=== PATIENT | male | born 1990 | race Caucasian/White ===

== ENCOUNTER 2017-04-08 12:32 | Emergency (ER) | payer MEDICAID ==
[2017-04-08] MEDS ORDERED: MORPHINE SULFATE 10 MG/ML INJ IV ONE (12:51)
--- NOTE | 2017-04-08 13:12 | ER Document Report ---
ED General - General Chief Complaint: Shoulder Injury Stated Complaint: SHOULDER INJURY Time Seen by Provider: 04/08/17 12:48 Mode of Arrival: Ambulatory Notes: 26-year-old male presents with complaints of right shoulder pain after falling off his skateboard. Patient notes he has had 2 previous surgeries on the right shoulder has had dislocations. Patient unable to move his arm due to pain TRAVEL OUTSIDE OF THE [place] IN LAST 30 DAYS: No - HPI Onset: Just prior to arrival Onset/Duration: Sudden Quality of pain: Achy Severity: Mild Pain Level: 2 Associated symptoms: Body/muscle aches Exacerbated by: Movement Relieved by: Denies Similar symptoms previously: Yes Recently seen / treated by doctor: Yes - Related Data Allergies/Adverse Reactions: No Known Allergies Allergy (Unverified 04/08/17 12:41) Past Medical History - Social History Smoking Status: Current Every Day Smoker Cigarette use (# per day): Yes Chew tobacco use (# tins/day): No Smoking Education Provided: No Family History: Reviewed & Not Pertinent Renal/ Medical History: Denies: Hx Peritoneal Dialysis Review of Systems - Review of Systems Notes: PHYSICAL EXAMINATION: GENERAL: Well-appearing, well-nourished and in no acute distress. HEAD: Atraumatic, normocephalic. EYES: Pupils equal round and reactive to light, extraocular movements intact, sclera anicteric, conjunctiva are normal. ENT: Nares patent, oropharynx clear without exudates. Moist mucous membranes. NECK: Normal range of motion, supple without lymphadenopathy LUNGS: Breath sounds clear to auscultation bilaterally and equal. No wheezes rales or rhonchi. HEART: Regular rate and rhythm without murmurs ABDOMEN: Soft, nontender, nondistended abdomen. No guarding, no rebound. No masses appreciated. Musculoskeletal: obvious deformity right shoulder NEUROLOGICAL: Cranial nerves grossly intact. Normal speech, normal gait. Normal sensory, motor exams PSYCH: Normal mood, normal affect. SKIN: abrasion right shoulder Physical Exam - Vital signs Vitals: Resp BP Pulse Ox 22 H 131/69 H 95 04/08/17 13:32 04/08/17 13:32 04/08/17 13:32 Course - Re-evaluation Re-evalutation: 04/08/17 14:29 Repeat x-ray notes dislocation is still present, will attempt reduction and conscious sedation again 04/08/17 15:30 Secondary attempt resolved patient's dislocation Patient to be given orthopedic follow-up otherwise stable pulses intact sensations intact After performing a Medical Screening Examination, I estimate there is LOW risk for INTRACRANIAL HEMORRHAGE, UNSTABLE SPINE FRACTURE, CENTRAL CORD SYNDROME, CAUDA EQUINA, THORACIC AORTIC DISSECTION, PNEUMOTHORAX, PERFORATED BOWEL, RUPTURED ABDOMINAL AORTIC ANEURYSM, ACUTE TENDON RUPTURE, COMPARTMENT SYNDROME, or OPEN FRACTURE, thus I consider the discharge disposition reasonable. Also, there is no evidence or peritonitis, sepsis, or toxicity. I have reevaluated this patient multiple times and no significant life threatening changes are noted. The patient and I have discussed the diagnosis and risks, and we agree with discharging home to follow-up with their primary doctor with the understanding that symptoms and presentations can change. We also discussed returning to the Emergency Department immediately if new or worsening symptoms occur. We have discussed the symptoms which are most concerning (e.g., bloody stool, fever, changing or worsening pain, vomiting) that necessitate immediate return. - Vital Signs Vital signs: Temp Pulse Resp BP Pulse Ox 78 12 115/77 96 04/08/17 14:48 04/08/17 15:21 04/08/17 15:21 04/08/17 15:21 - Diagnostic Test Radiology reviewed: Image reviewed, Reports reviewed - Dislocated right shoulder Procedures - Conscious Sedation Conscious sedation Time started: 13:35 Time completed: 14:00 Consent obtained: Yes Indication: right shoulder dislocation Prior complications: Procedural sedation Pt with a mild systemic disease.: P2. - ASA Classification. Airway Evaluation: Normal anatomy Mallampati Classification: Class 2 Used during procedure: Suction available, IV access obtained, Pulse ox on pt., engine monitor on pt. Medications administered: Diprivan Reversal agents: None I personally performed/intraservice time: Sedation, Procedure, 30 min or less Complications: No Notes: second attempt of conscious sedation performed from [id number] Reduction attempt successful at 1437 - Immobilization Right Shoulder Time completed: 14:00 Pre-Proc Neuro Vasc Exam: Normal Immobilizer type: Shoulder immobilizer Performed by: PCT Post-Proc Neuro Vasc Exam: Normal Alignment checked and good: Yes - Joint Reduction/Fracture Care Right Shoulder Time completed: 13:50 Consent obtained: Yes Conscious sedation: Yes Pre-procedure NV exam: Yes Fracture: Other Post-procedure NV exam: Yes Post-reduction x-ray: Joint reduced Reduction attempts: 1 Complications: No Discharge - Discharge Clinical Impression: Recurrent dislocation, right shoulder Condition: Stable Disposition: HOME, SELF-CARE Instructions: Shoulder Dislocation ([facility]), Sling as Treatment ([facility]) Prescriptions: Oxycodone HCl/Acetaminophen [Percocet 5-325 mg Tablet] 1 - 2 tab PO Q4H PRN #15 tablet PRN Reason: Referrals: MARTÍN SCHMITT DO [ACTIVE STAFF] - Follow up tomorrow
[2017-04-08] MEDS ORDERED: PROPOFOL INJ 200 MG/20 ML VIAL IV ONE ×2 (13:13→14:28)
[2017-04-08 15:54] VITALS: BP 121/79
== END 2017-04-08 15:54 | disposition home or self-care (01) ==
LOC: ER 12:32
PROC: 0RSJXZZ Reposition Right Shoulder Joint, External Approach (ICD-10-PCS; principal; 2017-04-08)
DX: M24.411 Recurrent dislocation, right shoulder (principal); V00.131A Fall from skateboard, initial encounter; Y93.51 Activity, roller skating (inline) and skateboarding; F17.210 Nicotine dependence, cigarettes, uncomplicated; Z98.890 Other specified postprocedural states
CPT/HCPCS: 99283; 99152; 73030; 23650; L3650; J2270; J2704

== ENCOUNTER 2017-04-17 12:05 | Emergency (ER) | payer MEDICAID ==
--- NOTE | 2017-04-17 13:22 | RADIOLOGY REPORT (SQ) ---
EXAM DESCRIPTION: SHOULDER RIGHT 2 OR MORE VIEWS COMPLETED DATE/TIME: 04/17/2017 1:00 pm REASON FOR STUDY: shoulder surg X2/?dislocated shoulder COMPARISON: 04/08/2017 NUMBER OF VIEWS: Three views. TECHNIQUE: Frontal and lateral images acquired of the right shoulder. LIMITATIONS: None. FINDINGS: MINERALIZATION: Normal. BONES: There is an anterior dislocation of the shoulder. No fracture is appreciated. JOINTS: Anterior dislocation. VISUALIZED LUNGS AND RIBS: No pneumothorax. No rib fracture. SOFT TISSUES: No radiopaque foreign body. OTHER: No other significant finding. IMPRESSION: Anterior dislocation of the right shoulder. TECHNICAL DOCUMENTATION: JOB ID: [id number] [employer]- All Rights Reserved
[2017-04-17] MEDS ORDERED: HYDROMORPHONE HCL INJ/PF 2 MG/ML AMPULE IV ONE ×3 (13:27→19:16)
--- NOTE | 2017-04-17 13:30 | ER Document Report ---
ED Medical Screen (RME) - General Chief Complaint: Shoulder Injury Stated Complaint: RIGHT SHOULDER PAIN Time Seen by Provider: 04/17/17 13:26 Mode of Arrival: Ambulatory Information source: Patient Notes: Patient was holding a cabinet that slid and fell causing him to dislocate his right shoulder. Patient does have a previous history of shoulder dislocation and orthopedic shoulder surgery in the past. Patient has obvious deformity of right shoulder. TRAVEL OUTSIDE OF THE [place] IN LAST 30 DAYS: No - Related Data Allergies/Adverse Reactions: No Known Allergies Allergy (Unverified 04/08/17 12:41) Past Medical History Renal/ Medical History: Denies: Hx Peritoneal Dialysis Past Surgical History: Reports: Hx Orthopedic Surgery, Hx Tonsillectomy Physical Exam - Vital signs Vitals: Temp Pulse Resp BP Pulse Ox 98.5 F 102 H 22 H 125/82 99 04/17/17 12:34 04/17/17 12:34 04/17/17 12:34 04/17/17 12:34 04/17/17 12:34 - Cardiovascular Pulses: Normal: Radial - Extremities General upper extremity: Tender Shoulder: Tender, Deformity, Dislocation Course - Re-evaluation Re-evalutation: 04/17/17 13:[address] Manzano who recommends getting IV Dilaudid for pain medication. Charge nurse advised the patient's status, patient awaiting available bed. - Vital Signs Vital signs: Temp Pulse Resp BP Pulse Ox 98.5 F 102 H 22 H 125/82 99 04/17/17 12:34 04/17/17 12:34 04/17/17 12:34 04/17/17 12:34 04/17/17 12:34
[2017-04-17] MEDS ORDERED: LORAZEPAM INJ 2 MG/1 ML VIAL IV ONE (14:46)
[2017-04-17] MEDS ORDERED: LIDOCAINE 1% INJ (10 MG/ML) 10 ML MDV INJ ONE (14:47)
--- NOTE | 2017-04-17 14:48 | ER Document Report ---
ED Extremity Problem, Upper - General Mode of Arrival: Ambulatory Information source: Patient TRAVEL OUTSIDE OF THE [place] IN LAST 30 DAYS: No <GERARDO DONG - Last Filed: 04/17/17 15:07> <SIA SAGE - Last Filed: 04/17/17 17:40> <CHAYA OREILLY - Last Filed: 04/17/17 19:16> - General Chief Complaint: Shoulder Injury Stated Complaint: RIGHT SHOULDER PAIN Time Seen by Provider: 04/17/17 13:26 Notes: Patient is a 26-year-old male who presents to the emergency department today with complaints of a right shoulder dislocation. Patient states that he was working on remodeling his uncles house, attempting to screw some screws into the wall when he accidentally dropped the drill. Patient states he attempted to catch it when his shoulder popped out. Patient states he frequently dislocates his right shoulder and has had 2 operations in the past to attempt to prevent further dislocations. Patient has good distal sensation and digit movement distally. (GERARDO DONG) - Related Data Allergies/Adverse Reactions: No Known Allergies Allergy (Unverified 04/08/17 12:41) Past Medical History - General Information source: Patient - Social History Smoking Status: Current Every Day Smoker Cigarette use (# per day): Yes Frequency of alcohol use: None Drug Abuse: None Lives with: Family Family History: Reviewed & Not Pertinent Patient has suicidal ideation: No Patient has homicidal ideation: No Musculoskeltal Medical History: Reports Other - Frequent dislocations of right shoulder Past Surgical History: Reports: Hx Orthopedic Surgery - right shoulder x2, Hx Tonsillectomy <GERARDO DONG - Last Filed: 04/17/17 15:07> Review of Systems - Review of Systems Constitutional: No symptoms reported EENT: No symptoms reported Cardiovascular: No symptoms reported Respiratory: No symptoms reported Gastrointestinal: No symptoms reported Genitourinary: No symptoms reported Male Genitourinary: No symptoms reported Musculoskeletal: See HPI, Joint pain - right shoulder Skin: No symptoms reported Hematologic/Lymphatic: No symptoms reported Neurological/Psychological: No symptoms reported -: Yes All other systems reviewed and negative <GERARDO DONG - Last Filed: 04/17/17 15:07> Physical Exam <GERARDO DONG - Last Filed: 04/17/17 15:07> <SIA SAGE - Last Filed: 04/17/17 17:40> <CHAYA ORELILY - Last Filed: 04/17/17 19:16> - Vital signs Vitals: Temp Pulse Resp BP Pulse Ox 98.5 F 102 H 22 H 125/82 99 04/17/17 12:34 04/17/17 12:34 04/17/17 12:34 04/17/17 12:34 04/17/17 12:34 - Notes Notes: PHYSICAL EXAM GENERAL: Alert, interacts well. Appears uncomfortable. HEAD: Normocephalic, atraumatic. EYES: Pupils equal, round, and reactive to light. Extraocular movements intact. ENT: Oral mucosa moist, tongue midline. NECK: Full range of motion. Supple. Trachea midline. LUNGS: No respiratory distress. HEART: Regular rate and rhythm. No murmurs, gallops, or rubs. ABDOMEN: Non-distended. EXTREMITIES: No edema, radial and dorsalis pedis pulses 2/4 bilaterally. No cyanosis. Obvious deformity of right shoulder, anterior dislocation. Limited range of motion. NEUROLOGICAL: Alert and oriented x3. Normal speech. Biceps and patellar DTRs 2+ bilaterally. PSYCH: Normal affect, normal mood. SKIN: Warm, dry, normal turgor. No rashes or lesions noted. (GERARDO DONG) Course <GERARDO DONG - Last Filed: 04/17/17 15:07> <SIA SAGE - Last Filed: 04/17/17 17:40> - Diagnostic Test Radiology reviewed: Image reviewed, Reports reviewed - Dislocated shoulder <CHAYA OREILLY - Last Filed: 04/17/17 19:16> - Re-evaluation Re-evalutation: 04/17/17 17:40 Attempt to reduce the shoulder several times without conscious sedation, every time it reduced it popped out immediately afterwards. Patient had been given 1 mg of Ativan for anxiety and muscle relaxation. Patient also had 5 mL's of 1% lidocaine injected into the glenohumeral joint under sterile technique using a posterior approach. Despite these attempts I was unable to fully reduce the shoulder. Care of this patient has been signed out to Dr. Mtz for further reduction attempts. (SIA SAGE) 04/17/17 18:33 Shoulder was reduced successfully then popped right back out 5 minutes later 04/17/17 18:35 soraida turcios paged 04/17/17 18:57 cuba Olivo paged 04/17/17 19:09 Dr tomi Mccray states since it comes in and out it can stay out and patient can follow up with either local ortho or his clinic tomorrow , they will not accept for transfer Patient has been made aware of this, denies any concerns agrees with this plan I will give him [facility] care After performing a Medical Screening Examination, I estimate there is LOW risk for INTRACRANIAL HEMORRHAGE, UNSTABLE SPINE FRACTURE, CENTRAL CORD SYNDROME, CAUDA EQUINA, THORACIC AORTIC DISSECTION, PNEUMOTHORAX, PERFORATED BOWEL, RUPTURED ABDOMINAL AORTIC ANEURYSM, ACUTE TENDON RUPTURE, COMPARTMENT SYNDROME, or OPEN FRACTURE, thus I consider the discharge disposition reasonable. Also, there is no evidence or peritonitis, sepsis, or toxicity. I have reevaluated this patient multiple times and no significant life threatening changes are noted. The patient and I have discussed the diagnosis and risks, and we agree with discharging home to follow-up with their primary doctor with the understanding that symptoms and presentations can change. We also discussed returning to the Emergency Department immediately if new or worsening symptoms occur. We have discussed the symptoms which are most concerning (e.g., bloody stool, fever, changing or worsening pain, vomiting) that necessitate immediate return. (CHAYA OREILLY) - Vital Signs Vital signs: Temp Pulse Resp BP Pulse Ox 98.5 F 84 18 137/83 H 99 04/17/17 12:34 04/17/17 18:30 04/17/17 18:30 04/17/17 18:30 04/17/17 18:30 Procedures - Conscious Sedation Conscious sedation Time started: 17:30 Time completed: 17:45 Consent obtained: Yes Indication: shoulder Prior complications: Procedural sedation Normal healthy pt.: P1. - ASA Classification Airway Evaluation: Normal anatomy Mallampati Classification: Class 1 Used during procedure: Suction available, IV access obtained, Pulse ox on pt., russet repairer on pt. Medications administered: Etomidate Reversal agents: None I personally performed/intraservice time: Sedation, Procedure, 30 min or less Complications: No - Immobilization Right Shoulder Time completed: 17:35 Pre-Proc Neuro Vasc Exam: Normal Immobilizer type: Shoulder immobilizer Performed by: PCT Post-Proc Neuro Vasc Exam: Normal Alignment checked and good: Yes - Joint Reduction/Fracture Care Right Shoulder Time completed: 17:35 Consent obtained: Yes Conscious sedation: Yes Pre-procedure NV exam: Yes Fracture: Closed Post-procedure NV exam: Yes Post-reduction x-ray: Joint reduced Reduction attempts: 1 Complications: No <CHAYA OREILLY - Last Filed: 04/17/17 19:16> Discharge <GERARDO DONG - Last Filed: 04/17/17 15:07> <SIA SAGE - Last Filed: 04/17/17 17:40> <CHAYA OREILLY - Last Filed: 04/17/17 19:16> - Discharge Clinical Impression: Shoulder dislocation Qualifiers: Encounter type: subsequent encounter Laterality: right Qualified Code(s): S43.004D - Unspecified dislocation of right shoulder joint, subsequent encounter Shoulder pain Qualifiers: Laterality: right Chronicity: chronic Qualified Code(s): M25.511 - Pain in right shoulder; G89.29 - Other chronic pain Condition: Stable Disposition: HOME, SELF-CARE Instructions: Shoulder Dislocation ([facility]), Sling as Treatment ([facility]) Additional Instructions: you must call [facility] orthopedic [facility], for an appointment with their orthopedic group tomorrow Prescriptions: Oxycodone HCl/Acetaminophen [Percocet 5-325 mg Tablet] 1 - 2 tab PO Q4H PRN #25 tablet PRN Reason: Scribe Documentation - Scribe Written by Jayne:: Jayne Samayoa, 04/17/2017 1538 acting as scribe for DrElba:: Brie <GERARDO DONG - Last Filed: 04/17/17 15:07> - Scribe Written by Jayne:: mer acting as scribe for :: miguelangel <CHAYA OREILLY - Last Filed: 04/17/17 19:16>
[2017-04-17] MEDS ORDERED: POVIDONE-IODINE 10% OINTMENT 28.4 GM TP ONE (14:54)
[2017-04-17] MEDS ORDERED: LIDOCAINE 1% INJ-PF (10 MG/ML) 30 ML SDV INJ ONE (15:15)
[2017-04-17] MEDS ORDERED: PROPOFOL INJ 200 MG/20 ML VIAL IV ONE ×3 (17:29→18:33)
--- NOTE | 2017-04-17 17:58 | RADIOLOGY REPORT (SQ) ---
EXAM DESCRIPTION: SHOULDER RIGHT 1 VIEW COMPLETED DATE/TIME: 04/17/2017 5:39 pm REASON FOR STUDY: POST REDUCTION COMPARISON: 04/17/2017 NUMBER OF VIEWS: One view TECHNIQUE: AP image acquired of the right shoulder. LIMITATIONS: None. FINDINGS: MINERALIZATION: Normal. BONES: No acute fracture or dislocation. No worrisome bone lesions. JOINTS: The dislocation has been reduced. VISUALIZED LUNGS AND RIBS: No pneumothorax. No rib fracture. SOFT TISSUES: No radiopaque foreign body. OTHER: No other significant finding. IMPRESSION: The dislocation has been reduced. TECHNICAL DOCUMENTATION: JOB ID: [id number] [employer]- All Rights Reserved
--- NOTE | 2017-04-17 18:44 | RADIOLOGY REPORT (SQ) ---
EXAM DESCRIPTION: SHOULDER RIGHT 1 VIEW COMPLETED DATE/TIME: 04/17/2017 6:23 pm REASON FOR STUDY: post reduction COMPARISON: 04/17/2017 TECHNIQUE: AP view of the right shoulder LIMITATIONS: None. FINDINGS: There has been interval reduction of the previously described anterior dislocation of the right shoulder. IMPRESSION: Interval reduction of the previously described anterior dislocation of the right annalee dimasElba TECHNICAL DOCUMENTATION: JOB ID: [id number] [employer] All Rights Reserved
--- NOTE | 2017-04-17 18:49 | RADIOLOGY REPORT (SQ) ---
EXAM DESCRIPTION: SHOULDER RIGHT 1 VIEW COMPLETED DATE/TIME: 04/17/2017 6:35 pm REASON FOR STUDY: possible dislocation COMPARISON: 04/17/2017 TECHNIQUE: AP upright view of the right shoulder. LIMITATIONS: None. FINDINGS: The humeral head overlaps and is slightly inferior to the glenoid. The possibility of a d islocation and/or subluxation cannot be excluded on the basis of this 1 film. Clinical correlation i s recommended. If clinical suspicions are high I would recommend a three view series of the right sh oulder. IMPRESSION: Humeral head over labs and a slightly inferior to the glenoid as noted above. The possi bility of a dislocation and/or subluxation cannot be excluded on the basis of this 1 film. Clinical correlation is recommended. If clinical suspicions are high I would recommend a three view series of the right shoulder for further evaluation TECHNICAL DOCUMENTATION: JOB ID: [id number] [employer]- All Rights Reserved
[2017-04-17 19:53] VITALS: BP 141/92
== END 2017-04-17 19:53 | disposition home or self-care (01) ==
LOC: ER 12:05
PROC: 0RSJXZZ Reposition Right Shoulder Joint, External Approach (ICD-10-PCS; principal; 2017-04-17)
DX: S43.004A Unspecified dislocation of right shoulder joint, initial encounter (principal); M24.411 Recurrent dislocation, right shoulder; X58.XXXA Exposure to other specified factors, initial encounter; Y93.H3 Activity, building and construction; Y92.009 Unspecified place in unspecified non-institutional (private) residence as the place of occurrence of the external cause; F17.210 Nicotine dependence, cigarettes, uncomplicated; G89.29 Other chronic pain; M25.511 Pain in right shoulder
CPT/HCPCS: 96376; 99283; 99152; 96374; 96375; 73020; 73030; 23650; L3650; J3490 ×2; J1170; J2060; J2704